=== PATIENT | female | born 1995 | race Caucasian/White ===

== ENCOUNTER 2017-09-30 21:13 | Emergency (ER) | payer OTHER ==
[2017-09-30 21:39] VITALS: BP 119/77; PULSE 74; RESP 18; TEMP 98.6; O2SAT 100
[2017-09-30 21:48] LABS: COLOR RED; LEUKOCYTE ESTERASE,URINE 2+ (NEGATIVE); NITRITE,URINE NEGATIVE (NEGATIVE)
--- NOTE | 2017-09-30 21:51 | EDPHY ---
H & P Stated Complaint: burning with urination, HPI/ROS: HPI CHIEF COMPLAINT: Dysuria times 48 hours. HISTORY OF PRESENT ILLNESS: This patient very pleasant 22-year-old female she is otherwise healthy no significant medical history presents emergency room with dysuria. Noticed blood in her urine with discomfort. Denies any abdominal pain or back pain. Denies fever nausea vomiting or diarrhea. Denies chest pain or shortness of breath. Main complaint dysuria times 48 hours. Past Medical History: No significant medical history Past Surgical History: No significant surgical history Social History: Denies daily use of drugs alcohol tobacco products. [employer] student. Family History: Noncontributory. ROS REVIEW OF SYSTEMS: A comprehensive 10 point review of systems is otherwise negative aside from elements mentioned in the history of present illness. Exam Constitutional appears well nontoxic triage nursing summary reviewed, vital signs reviewed, awake/alert. Eyes normal conjunctivae and sclera, EOMI, PERRLA. HENT normal inspection, atraumatic, moist mucus membranes, no epistaxis, neck supple/ no meningismus, no raccoon eyes. Respiratory clear to auscultation bilaterally, normal breath sounds, no respiratory distress, no wheezing. Cardiovascular rate normal, regular rhythm, no murmur, no edema, distal pulses normal. Gastrointestinal soft, non-tender, no rebound, no guarding, normal bowel sounds, no distension, no pulsatile mass. Genitourinary no CVA tenderness. Musculoskeletal no midline vertebral tenderness, full range of motion, no calf swelling, no tenderness of extremities, no meningismus, good pulses, neurovascularly intact. Skin pink, warm, & dry, no rash, skin atraumatic. Neurologic awake, alert and oriented x 3, AAOx3, moves all 4 extremities equally, motor intact, sensory intact, CN II-XII intact, normal cerebellar, normal vision, normal speech. Psychiatric normal mood/affect. Heme/Lymph/Immune no lymphadenopathy. Differential Diagnosis: Includes but is not limited to in a particular order, UTI, cystitis, pyelonephritis Medical Decision Making: Plan for this patient check UA. Re-evaluation: UA reviewed shows that she has a urinary tract infection. Will start on peridium Keflex here in emergency room. Keflex for home. Encourage lots of p.o. fluids. Return to the emergency room if there is worsening abdominal pain fever flank pain vomiting questions or concerns she understands. Source: Patient - Personal History LMP (Females 10-55): Now Current Tetanus Diphtheria and Acellular Pertussis (TDAP): No - Medical/Surgical History Hx Asthma: No Hx Chronic Respiratory Disease: No Hx Diabetes: No Hx Cardiac Disease: No Hx Renal Disease: No Hx Cirrhosis: No Hx Alcoholism: No Hx HIV/AIDS: No Hx Splenectomy or Spleen Trauma: No Other PMH: wisdom teeth - Social History Smoking Status: Never smoked Constitutional: Initial Vital Signs Temperature (C) 37 C 09/30/17 21:36 Heart Rate 74 09/30/17 21:36 Respiratory Rate 18 09/30/17 21:36 Blood Pressure 119/77 09/30/17 21:36 O2 Sat (%) 100 09/30/17 21:36 O2 Delivery Mode Room Air Allergies/Adverse Reactions: No Known Allergies Allergy (Unverified 09/30/17 21:35) Home Medications: Medication Instructions Recorded Control 09/30/17 Cephalexin [Keflex] 500 mg PO Q6H #28 cap 09/30/17 Phenazopyridine HCl [Pyridium] 200 mg PO TID #15 tab 09/30/17 Medical Decision Making - Data Points Laboratory Results: 09/30/17 09/30/17 21:34 21:34 Urine Color RED Urine Appearance MODERATELY TURBID Urine pH 6.0 (5.0-7.5) Ur Specific [place] 1.013 (1.002-1.030) Urine Protein 2+ H (NEGATIVE) Urine Ketones NEGATIVE (NEGATIVE) Urine Blood 3+ H (NEGATIVE) Urine Nitrate NEGATIVE (NEGATIVE) Urine Bilirubin NEGATIVE (NEGATIVE) Urine Urobilinogen NEGATIVE EU EU (0.2-1.0) Ur Leukocyte Esterase 2+ H (NEGATIVE) Urine RBC 50-182 /hpf H /hpf (0-3) Urine WBC 50-182 /hpf H /hpf (0-3) Ur Epithelial Cells NONE SEEN /lpf /lpf (NONE-1+) Urine Mucus 1+ /lpf /lpf (NONE-1+) Urine Glucose NEGATIVE (NEGATIVE) Urine Test NEGATIVE Departure - Departure Disposition: Home, Routine, Self-Care Condition: Good Instructions: Urinary Tract Infection in Women (ED) Additional Instructions: 1. Drink lots of fluids stay well-hydrated. 2. Take antibiotics as prescribed. 3. Return emergency room if develops worsening symptoms includes abdominal pain back pain fever vomiting. Referrals: NONE *PRIMARY CARE P,. [Primary Care Provider] - As per Instructions Prescriptions: Cephalexin [Keflex] 500 mg PO Q6H #28 cap Phenazopyridine HCl [Pyridium] 200 mg PO TID #15 tab
[2017-09-30] MEDS ORDERED: IBUPROFEN 600 MG TAB PO ONE (21:53)
[2017-09-30] MEDS ORDERED: ACETAMINOPHEN 500 MG TAB ONE (21:53)
[2017-09-30 21:56] LABS: MUCUS 1+ /lpf (NONE-1+); RBC,URINE 50-182 /hpf (0-3); WBC,URINE 50-182 /hpf (0-3)
[2017-09-30] MEDS ORDERED: PHENAZOPYRIDINE HCL 200 MG TAB PO ONE (21:59)
[2017-09-30] MEDS ORDERED: CEPHALEXIN 500 MG CAP PO ONE (22:01)
[2017-09-30] MEDS ORDERED: CEPHALEXIN 500MG PREPACK#4 BTL TAKEHOME ONE (22:01)
== END 2017-09-30 22:10 | disposition home or self-care (01) ==
DX: N39.0 Urinary tract infection, site not specified (principal)